=== PATIENT | female | born 1985 | race Caucasian/White ===

== ENCOUNTER 2017-03-07 23:05 | Emergency (ER) | payer MEDICAID ==
[~2017-03-07] VITALS: Ht 154.9 cm; Wt 70.0 kg
[~2017-03-07 23:05] MED LIST: PREN1TAB49
[2017-03-07 23:10] VITALS: Ht 154.9 cm; Wt 70.0 kg
[2017-03-07] MEDS ORDERED: SULF1TAB31 PO (23:41)
--- NOTE | 2017-03-08 01:50 | ERA ---
ER Documentation Chief Complaint Date/Time DATE: 03/08/17 TIME: 01:47 Chief Complaint abscess left upper eyelid HPI This is a 31-year-old otherwise healthy female presenting with a chief complaint of lesion on the upper left eye. Patient denies any change of vision , change in hearing, headache, fever, chills, nausea, chest pain, shortness of breath or difficulty breathing. Patient has no other complaints and describes no other associated manifestations. ROS All systems reviewed and are negative except as per history of present illness. Medications Home Meds Active Scripts Sulfamethoxazole/Trimethoprim* (Bactrim Ds* Tablet) 1 Each Tablet, 1 TAB PO BID , #14 TAB Prov:SHAGGY PIPER PA-C 03/07/17 Reported Medications Vits W-Ca,Fe,Fa(<1MG) () 1 Tab Tablet 09/07/10 Allergies Allergies: Coded Allergies: No Known Allergy (Verified Allergy, Unknown, 09/26/06) PMhx/Soc Medical and Surgical Hx: pt denies Medical Hx History of Surgery: Yes (C SECTION X'S 3) Anesthesia Reaction: No Hx Neurological Disorder: No Hx Respiratory Disorders: No Hx Cardiac Disorders: No Hx Psychiatric Problems: No Hx Miscellaneous Medical Probl: No Hx Alcohol Use: No Hx Substance Use: No Hx Tobacco Use: No Smoking Status: Never smoker Physical Exam Vitals Vital Signs Date Time Temp Pulse Resp B/P Pulse Ox O2 Delivery O2 Flow Rate FiO2 03/07/17 23:10 97.7 73 20 123/62 98 Physical Exam Const: Overweight 31-year-old female no acute distress Head: Atraumatic Eyes: Tender 1 cm palpable raised nodule superior to the patient's left eyelid. No fluctuance. No induration. ENT: Normal External Ears, Nose and Mouth. Neck: Full range of motion..~ No meningismus. Resp: Clear to auscultation bilaterally Cardio: Regular rate and rhythm, no murmurs Abd: Soft, non tender, non distended. Normal bowel sounds Skin: No petechiae or rashes. As noted in the ENT exam. Back: No midline or flank tenderness Ext: No cyanosis, or edema Neur: Awake and alert. Cranial nerves intact. Neurovascularly intact bilaterally. Psych: Normal Mood and Affect Procedures/MDM This is a 31-year-old female presenting with signs and symptoms most consistent with external hordeolum versus abscess. At this time a very low suspicion for spreading cellulitis, periorbital cellulitis, orbital cellulitis, infection of the eye, intracranial pathologies, or endangerment of vision. Patient will be discharged home with Bactrim antibiotics to cover for MRSA as well as recommendation for warm compress. I recommended that the patient follow-up with PCP for further evaluation and possible referral to a specialist. I have spoke with the patient regarding their condition and future management. They have verbally responded that they understand their status and treatment plan. The patients vitals are stable, and their current condition is appropriate for discharge. The patient will be given discharge instructions with return precautions. Departure Diagnosis: Primary Impression: Hordeolum external Qualified Code: H00.014 - Hordeolum externum of left upper eyelid Condition: Stable Patient Instructions: Sty Additional Instructions: Follow up with your PCP within the next 1-3 days for a more thorough evaluation and a possible referral to a specialist. Return the the emergency department immediately if symptoms worsen or change. If you have any questions regarding medications, ask your pharmacist or us before you leave. If any adverse reactions occur while taking your medications, discontinue the treatment and return to the emergency department immediately. Take your medications as directed, and complete the entire course of treatment. SHAGGY PIPER PA-C Mar 08, 2017 01:50
== END 2017-03-07 23:52 | disposition home or self-care (01) ==
LOC: FTE 23:05
DX: H00.014 Hordeolum externum left upper eyelid (principal)
CPT/HCPCS: 99283

== ENCOUNTER 2017-03-21 21:00 | Emergency (ER) | payer MEDICAID ==
[~2017-03-21] VITALS: Ht 162.6 cm; Wt 71.0 kg
[~2017-03-21 21:00] MED LIST changes: +SULF1TAB31 PO
[2017-03-21 21:04] VITALS: Ht 162.6 cm; Wt 71.0 kg
[2017-03-21] MEDS ORDERED: CLIN-73 PO (22:09)
--- NOTE | 2017-03-21 23:34 | ERD ---
ER Documentation Chief Complaint Date/Time DATE: 03/21/17 TIME: 23:33 Chief Complaint abscess left upper eyebrow HPI 31 year old female presents to the emergency department for the second time this past couple weeks. Patient presents with a lesion on the left upper eyebrow for one month. Patient states that it has not grown in size, has stayed the same. She states that it is mildly tender. She denies any changes in vision, fevers, chills nausea. Patient states that she was seen here 2 weeks prior to being seen as given Bactrim however it has not changed her symptoms ROS All systems reviewed and are negative except as per history of present illness. Medications Home Meds Active Scripts Clindamycin Hcl* (Clindamycin Hcl*) 300 Mg Capsule, 300 MG PO TID, #21 CAP Prov:COLLEEN MORALES PA-C 03/21/17 Sulfamethoxazole/Trimethoprim* (Bactrim Ds* Tablet) 1 Each Tablet, 1 TAB PO BID , #14 TAB Prov:SHAGGY PIPER PA-C 03/07/17 Reported Medications Vits W-Ca,Fe,Fa(<1MG) () 1 Tab Tablet 09/07/10 Allergies Allergies: Coded Allergies: No Known Allergy (Verified Allergy, Unknown, 09/26/06) PMhx/Soc History of Surgery: Yes (C SECTION X'S 3) Anesthesia Reaction: No Hx Neurological Disorder: No Hx Respiratory Disorders: No Hx Cardiac Disorders: No Hx Psychiatric Problems: No Hx Miscellaneous Medical Probl: No Hx Alcohol Use: No Hx Substance Use: No Hx Tobacco Use: No Smoking Status: Never smoker Physical Exam Vitals Vital Signs Date Time Temp Pulse Resp B/P Pulse Ox O2 Delivery O2 Flow Rate FiO2 03/21/17 21:04 98.3 81 20 122/56 99 Physical Exam General: WD/WN, in no apparent distress, non-toxic appearing HENT: NC/AT Eyes: Conjunctiva normal Neck: Supple Pulm: Clear to auscultation, normal labored breathing; no wheezing/rales/ rhonchi heard CV: Good capillary refill GI: Non-distended, no guarding Back: No masses Ext: No clubbing, cyanosis, or edema Neuro: Moves on all fours Skin: 2x2cm lesion on the left upper eyelid Psych: Normal mood Procedures/MDM 31-year-old female presents the emergency room with a lesion on the left upper eyebrow for the past month. This lesion has not changed in size and has remained the same, there was no evidence of cellulitis or abscess at this time. This appears to be a sebaceous cyst versus pilar cyst and will need to be followed up with a prem[facility] operator concentrate or surgeon for surgery. Patient was evaluated at this facility 2 weeks prior to being seen was given Bactrim and there was no change in her signs and symptoms. Discussed with her to return to the ER for any worsening sinus symptoms including increased redness or fevers. Patient understands and agrees with plan Departure Diagnosis: Primary Impression: Sebaceous cyst Condition: Stable Patient Instructions: Sebaceous Cyst Additional Instructions: Coloque compresas calientes sobre la lesin ocular velma veces al da alexandra veinte minutos Visite a yo mdico maana para un EXAMEN.Regrese a estas instalaciones si no se mejora chandu esperbamos o chandu le dijimos. [place] toda la medicina karen y chandu se le indic. Regrese a estas instalaciones si no se mejora chandu esperbamos o chandu le dijimos. COLLEEN MORALES PA-C Mar 21, 2017 23:34
== END 2017-03-21 22:18 | disposition home or self-care (01) ==
LOC: FTE 21:00
DX: L72.3 Sebaceous cyst (principal)
CPT/HCPCS: 99283